=== PATIENT | male | born 1985 | race Caucasian/White ===

== ENCOUNTER 2024-07-03 08:20 | Emergency (ER) | payer OTHER ==
[~2024-07-03] VITALS: Ht 180.3 cm; Wt 101.4 kg
[2024-07-03] MEDS ORDERED: KETOROLAC TROMETHAMINE 15 MG/ML VIAL IV ONE (08:45)
[2024-07-03] MEDS ORDERED: HYDROmorphone HCL 1 MG/ML SYR IV ONE (08:45)
[2024-07-03] MEDS ORDERED: HYDROCODONE/APAP 10/325 1 TAB PO ONE (08:45)
[2024-07-03] MEDS ORDERED: ondansetron HCL 4 MG/2 ML VIAL IV PRN (08:45)
[2024-07-03] MEDS ORDERED: SODIUM CHLORIDE 0.9% 1,000 ML IV PRN (08:45)
[2024-07-03 08:49] LABS: BASOPHILS 0.4 % (0-2); EOSINOPHILS 1.5 % (0-6); HEMATOCRIT 46.3 % (35.0-50.0); HEMOGLOBIN 16.2 g/dL (12.0-18.0); LYMPHOCYTES 30.8 % (24-44); MCH 30.7 (27-36); MCHC 35.1 g/dl (30-36); MCV 87.5 fl (81-99); MONOCYTES 7.5 % (0-12); NEUTROPHILS 59.8 % (39-80); PLATELET COUNT 184 K/uL (140-440); RBC 5.29 M/ul (4.3-5.7); RDW 13.4 (10.5-15.0)
[2024-07-03 09:07] LABS: ALBUMIN/GLOBULIN RATIO 1.25 (1.1-2.4); ANION GAP 13.8 (7-21); BUN/CREATININE RATIO 11.94 (6.0-28.6); CALCIUM 8.9 mg/dL (8.5-10.1); CREATININE, SERUM 1.34 mg/dL (0.70-1.30); POTASSIUM 3.8 mmol/L (3.5-5.1); PROTEIN, TOTAL 7.2 g/dL (6.4-8.2)
[2024-07-03 09:49] LABS: BILIRUBIN, URINE NEGATIVE (negative); BLOOD/HGB, URINE LARGE (Negative); KETONE, URINE SMALL (Negative); LEUK ESTERASE, URINE NEGATIVE (negative); NITRITE, URINE NEGATIVE (negative)
[2024-07-03 09:57] LABS: RED BLOOD CELLS, URINE >50 /hpf (0-5)
[2024-07-03 09:58] LABS: EPITHELIAL CELLS, URINE SQUAMOUS 1+ /lpf (0-1+); REFLEX CULTURE, URINE No (No)
[2024-07-03] MEDS ORDERED: ONDANSETRON HCL4 MG PO (10:15)
[2024-07-03] MEDS ORDERED: FLOMAX0.4 MG PO (10:15)
[2024-07-03] MEDS ORDERED: HYDROCODON-ACE1 EAC8 PO (10:15)
[2024-07-03] MEDS ORDERED: IBU600 MG PO (10:15)
[2024-07-03 10:18] VITALS: BP 135/101
== END 2024-07-03 10:18 | disposition home or self-care (01) ==
LOC: ED 08:20
PROVIDERS: Emergency Medicine
DX: N13.2 Hydronephrosis with renal and ureteral calculous obstruction (principal)
CPT/HCPCS: 36415; 74176; 80053; 81001; 85025; 96361; 96374; 96375; 99284-25; J1171; J1885; J2405; J7030